=== PATIENT | male | born 1990 | race Caucasian/White ===

== ENCOUNTER 2016-09-12 14:35 | Emergency (ER) | payer SELFPAY ==
[~2016-09-12] VITALS: Ht 188 cm; Wt 90.0 kg
[2016-09-12 14:38] VITALS: BP 139/86; PULSE 99; RESP 14; TEMP 97.9; O2SAT 100
--- NOTE | 2016-09-12 14:56 | PD ---
HPI Chief Complaint: Injury Time Seen by Provider: 14:56 Travel History International Travel<30 days: No Contact w/Intl Traveler<30days: No Traveled to known affect area: No History of Present Illness HPI 26-year-old male presents to emergency department for evaluation of left heel pain. Patient states that he sustained a fracture in the left heel 3 weeks ago. He was seen at [facility]. He did not follow-up with a lan/wan engineer or process improvement specialist as he was instructed to. He removed his splint on his own accord one week ago. States the pain has been worsening over last week. He has been ambulating. He has not been nonweightbearing on the left lower extremity. Pain is a constant 6 out of 10. Denies any other symptoms at this time. PFSH Past Medical History Medical History: Denies Significant Hx Social History Alcohol Use: Yes Tobacco Use: Yes Substance Use: No Allergies-Medications (Allergen,Severity, Reaction): Coded Allergies: No Known Allergies (Unverified , 09/12/16) Reported Meds & Prescriptions Reported Meds & Active Scripts Active Ibuprofen 800 Mg Tab 800 Mg PO Q8H PRN Review of Systems Except as stated in HPI: all other systems reviewed are Neg Physical Exam Narrative GENERAL: Well-nourished, well-developed nail patient in no acute distress SKIN: Warm and dry. HEAD: Normocephalic. EYES: No scleral icterus. No injection or drainage. NECK: Supple, trachea midline. No JVD or lymphadenopathy. CARDIOVASCULAR: Regular rate and rhythm without murmurs, gallops, or rubs. RESPIRATORY: Breath sounds equal bilaterally. No accessory muscle use. MUSCULOSKELETAL: No cyanosis, or edema. Tenderness elicited to palpation on the volar surface of the left foot near the calcaneus. No deformity. Distal pulses are palpable. Cap refill is within normal limits. BACK: Nontender without obvious deformity. No CVA tenderness. Data Data Last Documented VS Vital Signs Date Time Temp Pulse Resp B/P Pulse Ox O2 Delivery O2 Flow Rate FiO2 09/12/16 14:38 97.9 99 14 139/86 100 Room Air Orders Foot, Complete ([id number]) (09/12/16 ) Splint Or Brace Apply/Monitor (09/12/16 15:49) Mandatory Outpatient Referral (09/12/16 16:19) Fiberglass Short Leg Splint Ad (09/12/16 ) Fiberglass Sugartong Sp Ad Sl (09/12/16 ) MDM Medical Decision Making Medical Screen Exam Complete: Yes Emergency Medical Condition: Yes Medical Record Reviewed: Yes Differential Diagnosis Fracture versus sprain versus contusion versus narcotic seeking Narrative Course 26-year-old male presents to [facility] department for evaluation of persistent left heel pain following a fracture sustained 3 weeks ago. Patient was not seen and evaluated here. I am unable to see the CT that was complete. X-ray imaging is complete and shows Last Impressions Foot X-Ray 09/12/16 0000 Signed Impressions: Service Date/Time: Monday, September 12, 2016 15:16 - CONCLUSION: Linear sclerosis and lucency through the posterior inferior aspect of the calcaneus likely representing either a subacute fracture or impaction fracture. Jason James MD Patient is placement Deleon splint. He is advised to follow-up with a primary care provider and lan/wan engineer. A mandatory referral has been placed as the patient states he is unable to follow-up due to not having insurance. He is advised to be nonweightbearing. He agrees to return immediately with any acute worsening symptoms. Diagnosis Primary Impression: Pain of left heel Additional Impression: History of foot fracture Referrals: [facility] Primary Care Physician Patient Instructions: Calcaneal Fracture (ED), General Instructions Additional Instructions: Ice and elevate to reduce pain and swelling Do not remove your splint until you follow-up with a lan/wan engineer Follow-up her primary care provider Return immediately to the emergency department with any acute worsening of symptoms Med/Other Pt SpecificInfo: Prescription(s) given Scripts Ibuprofen 800 Mg [id number] Mg PO Q8H PRN (PAIN SCALE 1 TO 10) #30 TAB Ref 0 Prov:Sheeba Butler 09/12/16 Disposition: 01 DISCHARGE HOME Condition: Stable Sheeba Btuler Sep 12, 2016 14:56
[2016-09-12] MEDS ORDERED: IBUP800T23 PO (16:09)
--- NOTE | 2016-09-12 16:25 | RADRPT ---
EXAM DATE/TIME: 09/12/2016 15:16 [facility] COMPARISON: No previous studies available for comparison. INDICATIONS : Possible fracture. MEDICAL HISTORY : told 2 weeks ago he broke his left heel when he went to [facility] SURGICAL HISTORY : None. ENCOUNTER: Initial ACUITY: 2 weeks PAIN SCORE: 7/10 LOCATION: Left foot on lateral side FINDINGS: 3 views of the left foot demonstrate subtle lucency through the posterior inferior calcaneus. The sup erior aspect demonstrates mild sclerosis. Otherwise, no fracture or dislocation is visualized. [place] joint appears intact. No soft tissue abnormality or radiopaque foreign body is seen. CONCLUSION: Linear sclerosis and lucency through the posterior inferior aspect of the calcaneus likely representi ng either a subacute fracture or impaction fracture. Jason James MD on September 12, 2016 at 16:17 Board Certified Radiologist. This report was verified electronically.
== END 2016-09-12 16:50 | disposition home or self-care (01) ==
LOC: NEPB 14:35
DX: M79.672 Pain in left foot (principal); Z72.0 Tobacco use
CPT/HCPCS: 29125; 73630